=== PATIENT | male | born 1975 | race Caucasian/White ===

== ENCOUNTER 2023-12-26 19:30 | Emergency (ER) | payer MEDICAID ==
[~2023-12-26] VITALS: Ht 165.1 cm; Wt 77.0 kg
[2023-12-26 20:30] VITALS: TEMP 98.6; O2SAT 99
[2023-12-26 23:40] VITALS: BP 140/88; PULSE 90; RESP 20
== END 2023-12-26 23:41 | disposition home or self-care (01) ==
LOC: ER 19:30
DX: M79.604 Pain in right leg (principal)
CPT/HCPCS: 73590; 99283